=== PATIENT | female | born 1970 | race Two or more races ===

== ENCOUNTER 2018-07-12 23:11 | Emergency (ER) | payer MEDICAID, OTHER ==
[~2018-07-12] VITALS: Ht 167.6 cm; Wt 72.6 kg
[2018-07-13 01:11] VITALS: BP 116/65
[2018-07-13] MEDS ORDERED: BACLOFEN 10 MG TAB PO ONE (01:45)
[2018-07-13] MEDS ORDERED: TRIAMCINOLONE 40MG/ML 1ML VIAL IX ONE (01:45)
[2018-07-13] MEDS ORDERED: ACETAMINOPHEN/CODEINE#3 (300/30mg) TAB PO ONE (01:45)
== END 2018-07-13 02:11 | disposition home or self-care (01) ==
LOC: ER 23:11
DX: M75.02 Adhesive capsulitis of left shoulder (principal); M75.32 Calcific tendinitis of left shoulder
CPT/HCPCS: 20550; 73030; 99284; J3301